=== PATIENT | female | born 1965 | race Caucasian/White ===

== ENCOUNTER 2023-08-03 10:34 | Observation (INO) ==
[2023-08-03] MEDS ORDERED: LR 1,000 ML IV 1,000 ML IV ONE (10:41)
[2023-08-03 12:56] LABS: BASOPHILS # (AUTO) 0.2 X10^3/uL (0.0-0.1); BASOPHILS % (AUTO) 1.4 % (0.2-1.0); EOSINOPHILS # (AUTO) 2.1 x10^3/uL (0.0-0.2); EOSINOPHILS % (AUTO) 16.2 % (0.9-2.9); HEMATOCRIT 41.1 % (36.0-47.0); HEMOGLOBIN 13.5 g/dL (12.0-16.0); LYMPHOCYTES # (AUTO) 3.5 X10^3/uL (1.3-2.9); LYMPHOCYTES % (AUTO) 27.6 % (21.0-51.0); MEAN CORPUSCULAR HGB CONC 32.8 g/dL (33.0-35.0); MEAN CORPUSCULAR VOLUME 79.3 fL (80.0-100.0); MEAN PLATELET VOLUME 7.2 fL (7.4-11.0); MONOCYTES # (AUTO) 0.8 x10^3/uL (0.3-0.8); NEUTROPHILS # (AUTO) 6.2 x10^3/uL (2.2-4.8); NEUTROPHILS % (AUTO) 48.8 % (42.0-75.0); PLATELET COUNT 400 X10^3/uL (150.0-450.0); RED BLOOD COUNT 5.18 X10^6/uL (3.5-5.4); RED CELL DISTRIBUTION WIDTH 14.7 % (11.6-16.5); WHITE BLOOD COUNT 12.6 X10^3/uL (3.6-10.0)
[2023-08-03] MEDS: FLAGYL IV PREMIX 500 MG BAG 500 MG/100 ML BAG IV SCH ×4 (13:05→20:59)
[2023-08-03] MEDS: DILAUDID INJ IVP PRN ×2 (13:06→18:05)
[2023-08-03] MEDS: ZOFRAN INJ 4 MG VIAL IVP PRN ×2 (13:07→21:05)
[2023-08-03] MEDS: LEVAQUIN PREMIX IV 750 MG 750 MG/150 ML BAG IV SCH (13:07)
[2023-08-03] MEDS ORDERED: PROVENTIL NEB TX 0.083% 2.5MG/ 3ML NEB PRN (13:40)
[2023-08-03 14:01] LABS: ALANINE AMINOTRANSFERASE 21 Units/L (12-78); ALBUMIN 3.4 g/dL (3.4-5.0); ALKALINE PHOSPHATASE 127 Units/L (46-116); AMYLASE 58 Units/L (25-115); ASPARTATE AMINO TRANSFERASE 16 Units/L (15-37); BLOOD UREA NITROGEN 16 mg/dL (7-18); CARBON DIOXIDE 25.5 mmol/L (21-32); CHLORIDE 103 mmol/L (98-107); CREATININE 0.85 mg/dL (0.55-1.02); GLUCOSE 102 mg/dL (65-99); LIPASE 30 Units/L (16-77); POTASSIUM 3.7 mmol/L (3.5-5.1); SODIUM 137 mmol/L (136-145); TOTAL PROTEIN 7.3 g/dL (6.4-8.2); eGFR NON BLACK RACES > 60 (>60)
[2023-08-03] MEDS ORDERED: NS 100 ML IV 100 ML ONE (14:08)
[2023-08-03] MEDS ORDERED: OMNIPAQUE 350 mg/mL 100 mL BTL 100 ML ONE (14:08)
[2023-08-03] MEDS ORDERED: PHENERGAN INJ 25 MG IM ONE ×2 (14:45→14:46)
[2023-08-03 16:27] VITALS: BMI 34.0
[2023-08-03] MEDS ORDERED: CONSULT PHARMACY - POTASSIUM & MAGNESIUM XX SCH (17:00)
--- NOTE | 2023-08-03 18:57 | CT ---
EXAM:ABDCMEN/PELVIS WITH CONHISTORY:ABD PAIN; ; PT FINISHED BARIUM @1245. PT VOMITTED UP BARIUM @1430.COMPARISON:None.TECHNIQUE:Axial CT images of the abdomen and pelvis were obtained after the administration of 100 mL Omnipaque 350 IV contrast and reformatted into coronal and sagittal planes for further evaluation. Enteric contrast was administered.Radiation dose: 299.76 mGy-cm total DLPFINDINGS:Lung bases are clear.Stomach appears normal.Diffuse fatty infiltration of the liver.Spleen, pancreas and adrenal glands are unremarkable.Gallbladder appears normal with no biliary dilatation.Homogeneous enhancement of the kidneys without hydronephrosis or hydroureter.Unremarkable appearance of the urinary bladder.Status post hysterectomy.Unremarkable appearance of the large and small bowel.No evidence of acute appendicitis.No pneumoperitoneum.No significant fluid collection.No adenopathy.No acute osseous abnormality.IMPRESSION:1. No acute intra-abdominal abnormality detected.2. Diffuse fatty infiltration of the liver.THIS IS AN ELECTRONICALLY VERIFIED FINAL REPORT08/03/2023 6:53 PM - Electronically signed by Lowell Ariza MD
[2023-08-04] MEDS: FLAGYL IV PREMIX 500 MG BAG 500 MG/100 ML BAG IV SCH ×3 (02:12→19:28)
[2023-08-04 06:26] LABS: BASOPHILS % (AUTO) 0.4 % (0.2-1.0); EOSINOPHILS # (AUTO) 1.4 x10^3/uL (0.0-0.2); EOSINOPHILS % (AUTO) 13.8 % (0.9-2.9); HEMATOCRIT 37.3 % (36.0-47.0); HEMOGLOBIN 12.5 g/dL (12.0-16.0); LYMPHOCYTES # (AUTO) 3.1 X10^3/uL (1.3-2.9); LYMPHOCYTES % (AUTO) 29.1 % (21.0-51.0); MEAN CORPUSCULAR HEMOGLOBIN 26.5 pg (27.0-34.0); MEAN CORPUSCULAR HGB CONC 33.5 g/dL (33.0-35.0); MEAN PLATELET VOLUME 7.1 fL (7.4-11.0); MONOCYTES # (AUTO) 0.6 x10^3/uL (0.3-0.8); MONOCYTES % (AUTO) 5.9 % (0.0-13.0); NEUTROPHILS # (AUTO) 5.3 x10^3/uL (2.2-4.8); NEUTROPHILS % (AUTO) 50.8 % (42.0-75.0); PLATELET COUNT 329 X10^3/uL (150.0-450.0); RED BLOOD COUNT 4.72 X10^6/uL (3.5-5.4); RED CELL DISTRIBUTION WIDTH 14.7 % (11.6-16.5); WHITE BLOOD COUNT 10.5 X10^3/uL (3.6-10.0)
[2023-08-04 06:38] LABS: ALANINE AMINOTRANSFERASE 19 Units/L (12-78); ALBUMIN 2.8 g/dL (3.4-5.0); ALKALINE PHOSPHATASE 112 Units/L (46-116); ASPARTATE AMINO TRANSFERASE 13 Units/L (15-37); BLOOD UREA NITROGEN 13 mg/dL (7-18); CALCIUM 8.6 mg/dL (8.5-10.1); CARBON DIOXIDE 29.1 mmol/L (21-32); CHLORIDE 105 mmol/L (98-107); COR CA(FOR HYPOALB) 9.6 mg/dL (8.5-10.1); CREATININE 0.84 mg/dL (0.55-1.02); GLUCOSE 74 mg/dL (65-99); MAGNESIUM 2.2 mg/dL (2.0-2.9); POTASSIUM 3.8 mmol/L (3.5-5.1); SODIUM 139 mmol/L (136-145); TOTAL PROTEIN 6.3 g/dL (6.4-8.2); eGFR NON BLACK RACES > 60 (>60)
[2023-08-04] MEDS ORDERED: CONSULT PHARMACY - POTASSIUM & MAGNESIUM XX SCH (09:00)
[2023-08-04] MEDS: LEVAQUIN PREMIX IV 750 MG 750 MG/150 ML BAG IV SCH (09:06)
[2023-08-04] MEDS: DILAUDID INJ IVP PRN (09:08)
[2023-08-04] MEDS ORDERED: NS 100 ML IV 100 ML with VENOFER 400 MG IV NR ×2 (09:35)
[2023-08-04] MEDS: ZOFRAN INJ 4 MG VIAL IVP PRN (10:36)
[2023-08-04] MEDS ORDERED: NS 250 ML IV 250 ML IV ONE (19:17)
[2023-08-05] MEDS: FLAGYL IV PREMIX 500 MG BAG 500 MG/100 ML BAG IV SCH (02:06)
[2023-08-05 05:18] LABS: BASOPHILS % (AUTO) 0.5 % (0.2-1.0); EOSINOPHILS # (AUTO) 1.6 x10^3/uL (0.0-0.2); EOSINOPHILS % (AUTO) 17.3 % (0.9-2.9); HEMATOCRIT 37.8 % (36.0-47.0); HEMOGLOBIN 12.5 g/dL (12.0-16.0); LYMPHOCYTES # (AUTO) 2.4 X10^3/uL (1.3-2.9); LYMPHOCYTES % (AUTO) 27.2 % (21.0-51.0); MEAN CORPUSCULAR HEMOGLOBIN 26.3 pg (27.0-34.0); MEAN CORPUSCULAR VOLUME 79.5 fL (80.0-100.0); MONOCYTES # (AUTO) 0.7 x10^3/uL (0.3-0.8); MONOCYTES % (AUTO) 7.4 % (0.0-13.0); NEUTROPHILS # (AUTO) 4.3 x10^3/uL (2.2-4.8); NEUTROPHILS % (AUTO) 47.6 % (42.0-75.0); PLATELET COUNT 335 X10^3/uL (150.0-450.0); RED BLOOD COUNT 4.75 X10^6/uL (3.5-5.4); RED CELL DISTRIBUTION WIDTH 14.8 % (11.6-16.5)
[2023-08-05 06:22] LABS: ALANINE AMINOTRANSFERASE 17 Units/L (12-78); ALBUMIN 2.8 g/dL (3.4-5.0); ALKALINE PHOSPHATASE 112 Units/L (46-116); ASPARTATE AMINO TRANSFERASE 11 Units/L (15-37); BLOOD UREA NITROGEN 15 mg/dL (7-18); CALCIUM 8.8 mg/dL (8.5-10.1); CARBON DIOXIDE 26.4 mmol/L (21-32); CHLORIDE 106 mmol/L (98-107); COR CA(FOR HYPOALB) 9.8 mg/dL (8.5-10.1); CREATININE 0.92 mg/dL (0.55-1.02); GLUCOSE 91 mg/dL (65-99); POTASSIUM 3.8 mmol/L (3.5-5.1); SODIUM 138 mmol/L (136-145); TOTAL PROTEIN 6.2 g/dL (6.4-8.2); eGFR NON BLACK RACES > 60 (>60)
[2023-08-05] MEDS: ZOFRAN INJ 4 MG VIAL IVP PRN (08:15)
[2023-08-05] MEDS: LEVAQUIN PREMIX IV 750 MG 750 MG/150 ML BAG IV SCH (08:15)
[2023-08-05 09:19] VITALS: BP 105/63; PULSE 72; RESP 20; TEMP 98; O2SAT 95
== END 2023-08-05 11:20 | disposition home or self-care (01) ==
LOC: MED/SURG
PROVIDERS: ADMIT Obstetrics & Gynecology Obstetrics; ATTEND Obstetrics & Gynecology Obstetrics
DX: K52.89 Other specified noninfective gastroenteritis and colitis; R50.9 Fever, unspecified; R11.2 Nausea with vomiting, unspecified; D50.8 Other iron deficiency anemias; R10.84 Generalized abdominal pain; K76.0 Fatty (change of) liver, not elsewhere classified